=== PATIENT | female | born 1955 | race Caucasian/White ===

== ENCOUNTER → 2019-09-18 08:23 | Outpatient (BNVA) | payer MEDICARE, MEDICAID, SELFPAY | PROVIDERS: Family Provider Nurse Practitioner; PCP Nurse Practitioner; Visit Provider Nurse Practitioner | DX: R53.83 Other fatigue (principal); E78.2 Mixed hyperlipidemia; E55.9 Vitamin D deficiency, unspecified; Z79.01 Long term (current) use of anticoagulants; I10 Essential (primary) hypertension | CPT/HCPCS: 80053; 80061; 82306; 84439; 84443 ==

== ENCOUNTER 2020-02-08 10:04 | Outpatient (CLI) | payer MEDICARE, MEDICAID, SELFPAY ==
--- NOTE | 2020-02-08 10:15 | USCV_ITS ---
Dana Hitchcock Age: 65 Gender: F : 1955 Exam Date: 02/08/2020 10:27 Ordering Phys: Vaishali León MD ([email or web address]) Technologist: Lachelle Cedillo [place] [facility] [place]: Stenosis of carotid artery Risk Factors: Smoker Previous Vascular Surgery: None Right Brachial BP: / Left Brachial BP: / Right Left Velocity (cm/s) Spectral Plaque Velocity (cm/s) Spectral Plaque Syst/Diast Broadening Syst/Diast Broadening 74.00/ 14.40 Prox CCA 66.40 / 12.50 51.60/ 6.30 Mid CCA 62.50 / 11.80 49.30/ 12.00 Distal CCA 55.50 / 12.50 50.70/ 13.80 Prox ICA 49.50 / 13.90 66.40/ 16.90 Mid ICA 65.10 / 17.70 69.50/ 20.20 Distal ICA 69.70 / 18.60 73.60 ECA 71.50 1.35 ICA/CCA 1.12 Antegrade Vertebral Antegrade 38.40/ 9.00 cm/s 40.10/ 10.40 cm/s Tri Subclavian Tri 70.80 72.50 FINDINGS Mild to moderate scattered plaques at the bifurcations and proximal internal carotid arteries bilaterally. Intimal thickening in the common carotid arteries bilaterally. Antegrade flow in the vertebral arteries bilaterally. Normal Doppler flow velocities in the external carotid arteries bilaterally. CONCLUSIONS Mild to moderate scattered plaques at the bifurcations and proximal internal carotid arteries bilaterally suggestive of 16 to 49% gnosis. Intimal thickening in the common carotid arteries bilaterally. Dr Vaishali León MD [facility] (Electronically Signed) Final Date: 09 February 2020 08:46 S
== END 2020-02-08 10:05 | disposition home or self-care (01) ==
LOC: US 10:09
PROVIDERS: PCP Nurse Practitioner; Visit Provider Internal Medicine Cardiovascular Disease
DX: I65.23 Occlusion and stenosis of bilateral carotid arteries (principal)
CPT/HCPCS: 93880

== ENCOUNTER → 2020-11-28 17:12 | Outpatient (BNVA) | payer MEDICARE, MEDICAID, SELFPAY | PROVIDERS: PCP Nurse Practitioner; Visit Provider Family Medicine | DX: E78.2 Mixed hyperlipidemia (principal); I10 Essential (primary) hypertension; M19.90 Unspecified osteoarthritis, unspecified site; K21.9 Gastro-esophageal reflux disease without esophagitis; Z68.24 Body mass index [BMI] 24.0-24.9, adult; F17.210 Nicotine dependence, cigarettes, uncomplicated; Z71.89 Other specified counseling | CPT/HCPCS: 80053; 80061; 83721; 84443; 85025 ==

== ENCOUNTER 2020-12-16 11:57 | Outpatient (CLI) | payer MEDICARE, MEDICAID, SELFPAY ==
--- NOTE | 2020-12-16 12:00 | USCV_ITS ---
Dana Hitchcock Age: 65 Gender: F : 1955 Exam Date: 12/16/2020 12:11 Ordering Phys: Vaishali León MD ([email or web address]) Technologist: Aydee Philippe [place] [facility] [place]: RECHECK CCA STENOSIS Risk Factors: Unknown Previous Vascular Surgery: None Right Brachial BP: / Left Brachial BP: / Right Left Velocity (cm/s) Spectral Plaque Velocity (cm/s) Spectral Plaque Syst/Diast Broadening Syst/Diast Broadening 78.30/ 15.40 Prox CCA 65.70 / 16.40 48.00/ 16.40 Mid CCA 51.90 / 14.50 54.60/ 18.40 Distal CCA 55.90 / 15.80 61.80/ 20.40 Hetro Prox ICA 64.10 / 23.10 Hetro 70.30/ 25.60 Mid ICA 75.60 / 26.40 69.70/ 23.00 Distal ICA 74.90 / 29.10 60.50 ECA 96.00 Hetro 1.47 ICA/CCA 1.46 Antegrade Vertebral Antegrade 40.80/ 11.20 cm/s 27.20/ 8.00 cm/s Tri Subclavian Tri 36.80 57.70 FINDINGS Mild thickening in the common carotid arteries bilaterally. Minimal plaques of the bifurcations bilaterally. Normal Doppler flow velocities. Antegrade flow in the vertebral arteries bilaterally CONCLUSIONS Minimal plaques at the bifurcations bilaterally suggesting less than 50% stenosis. Normal Doppler flow velocities, suggesting no significant stenosis in the above-mentioned arteries. Dr Vaishali León MD [facility] (Electronically Signed) Final Date: 19 December 2020 09:13 S
== END 2020-12-16 11:58 | disposition home or self-care (01) ==
LOC: US 11:58
PROVIDERS: PCP Family Medicine; Visit Provider Internal Medicine Cardiovascular Disease
DX: I65.22 Occlusion and stenosis of left carotid artery (principal)
CPT/HCPCS: 93880

== ENCOUNTER → 2021-07-25 10:24 | Outpatient (BNVA) | payer MEDICARE, MEDICAID, SELFPAY | PROVIDERS: PCP Family Medicine; Visit Provider Internal Medicine Cardiovascular Disease | DX: I65.22 Occlusion and stenosis of left carotid artery (principal); I35.1 Nonrheumatic aortic (valve) insufficiency; I10 Essential (primary) hypertension | CPT/HCPCS: 99214 ==

== ENCOUNTER → 2021-08-17 09:17 | Outpatient (BNVA) | payer MEDICARE, MEDICAID, SELFPAY | PROVIDERS: PCP Family Medicine; Visit Provider Internal Medicine Cardiovascular Disease | DX: E78.2 Mixed hyperlipidemia (principal); I10 Essential (primary) hypertension; M79.89 Other specified soft tissue disorders; R53.83 Other fatigue | CPT/HCPCS: 80048; 83880 ==

== ENCOUNTER → 2021-10-09 11:31 | Outpatient (BNVA) | payer MEDICARE, MEDICAID, SELFPAY | PROVIDERS: PCP Family Medicine; Visit Provider Family Medicine | DX: E78.5 Hyperlipidemia, unspecified (principal); I10 Essential (primary) hypertension; E55.9 Vitamin D deficiency, unspecified | CPT/HCPCS: 80053; 80061; 82306; 84443; 85025 ==

== ENCOUNTER → 2022-01-31 09:40 | Outpatient (BNVA) | payer MEDICARE, MEDICAID, SELFPAY | PROVIDERS: PCP Family Medicine; Visit Provider Internal Medicine Cardiovascular Disease | DX: I35.1 Nonrheumatic aortic (valve) insufficiency (principal); I65.22 Occlusion and stenosis of left carotid artery; I49.3 Ventricular premature depolarization; E78.2 Mixed hyperlipidemia; I10 Essential (primary) hypertension; F17.200 Nicotine dependence, unspecified, uncomplicated | CPT/HCPCS: 99214 ==

== ENCOUNTER 2022-03-22 08:26 | Outpatient (CLI) | payer MEDICARE, MEDICAID, SELFPAY ==
--- NOTE | 2022-03-22 08:45 | USCV_ITS ---
Dana Hitchcock Age: 67 Gender: F : 1955 Exam Date: 03/22/2022 08:48 Ordering Phys: Vaishali León MD ([email or web address]) Technologist: [place] [facility] [facility] [place]ication: Murmur BP: 136 / 80 HR: 62 Rhythm: Sinus Technical Quality: Adequate MEASUREMENTS (Male / Female) Normal Values 2D ECHO LV Diastolic Diameter PLAX 4.3 cm 4.2 - 5.9 / 3.9 - 5.3 cm LV Systolic Diameter PLAX 2.6 cm IVS Diastolic Thickness 1.0 cm 0.6 - 1.0 / 0.6 - 0.9 cm IVS Systolic Thickness 1.5 cm LVPW Diastolic Thickness 1.0 cm 0.6 - 1.0 / 0.6 - 0.9 cm LVPW Systolic Thickness 1.2 cm LVOT Diameter 2.1 cm LV Ejection Fraction 2D Teich 71.1 % LV Ejection Fraction MOD 2C 66.3 % LV Ejection Fraction 2C AL 65.0 % LA Diameter 3.1 cm IVC Diameter 1.1 cm M-MODE Aortic Annulus Diameter 3.9 cm LA Ao Ratio MM 0.8 MV E Point Septal Separation 0.4 cm DOPPLER LVOT Peak Velocity 121.0 cm/s MV Area PHT 5.0 cm squared Mitral E to A Ratio 0.8 MV E' Velocity 53.0 cm/s Mitral E to MV E' Ratio 8.0 Mitral E to LV E' Lateral Ratio 8.0 Mitral E to LV E' Septal Ratio 8.1 TR Peak Velocity 305.0 cm/s TR Peak Gradient 37.2 mmHg TV Peak E Velocity 104.0 cm/s Right Atrial Pressure 3.0 mmHg Pulmonary Artery Systolic Pressu 40.2 mmHg PV Peak Velocity 111.0 cm/s RV Acceleration Time 0.2 s FINDINGS Left Ventricle Normal left ventricular size, systolic function and wall thickness, with no regional wall motion abnormalities. Left ventricular ejection fraction is estimated at 70-75 %. Normal diastolic function. Right Ventricle Normal right ventricular size and systolic function. Right ventricular systolic pressure 46 mmHg. Right Atrium Normal right atrial size. Left Atrium Normal left atrial size. Mitral Valve Mildly thickened mitral valve. No mitral valve stenosis. Trace mitral valve regurgitation. Aortic Valve Aortic valve not well visualized. No aortic valve stenosis. Mild to moderate aortic valve regurgitation. Tricuspid Valve Structurally normal tricuspid valve. No tricuspid valve stenosis. Mild tricuspid valve regurgitation. Pulmonic Valve Pulmonic valve not well visualized. Pericardium No pericardial effusion. Aorta Normal size aortic root and proximal ascending aorta. IVC Normal IVC dimension with >50% respiratory change of the inferior vena cava. CONCLUSIONS 1. Normal left ventricular size, systolic function and wall thickness, with no regional wall motion abnormalities. Left ventricular ejection fraction is estimated at 70-75 %. Normal diastolic function. 2. Normal right ventricular size and systolic function. 3. Mild pulmonary hypertension with pulm artery pressure estimated at 46 mmHg. 4. Mild tricuspid valve regurgitation. 5. Mild to moderate aortic valve regurgitation. 6. When compared to study dated 08/22/2018, there may not have been any significant change. Shivani Bellamy MD (Electronically Signed) Final Date: 26 March 2022 12:54 S
== END 2022-03-22 08:27 | disposition home or self-care (01) ==
LOC: RAD 08:27
PROVIDERS: PCP Family Medicine; Visit Provider Internal Medicine Cardiovascular Disease
DX: R06.09 Other forms of dyspnea; R01.1 Cardiac murmur, unspecified; I27.20 Pulmonary hypertension, unspecified; I08.2 Rheumatic disorders of both aortic and tricuspid valves
CPT/HCPCS: 93306

== ENCOUNTER → 2022-04-10 09:20 | Outpatient (BNVA) | payer MEDICARE, MEDICAID, SELFPAY | PROVIDERS: PCP Family Medicine; Visit Provider Nurse Practitioner | DX: E78.2 Mixed hyperlipidemia (principal); I10 Essential (primary) hypertension | CPT/HCPCS: 80053; 80061; 81000; 84443; 85025 ==

== ENCOUNTER 2022-05-07 12:20 | Outpatient (CLI) | payer MEDICARE, MEDICAID, SELFPAY ==
--- NOTE | 2022-05-07 13:00 | XR_ITS ---
WS: [email or web address] SCREENING DEXA SCAN [employer] CLINICAL INFORMATION: Z78.0 - Asymptomatic menopausal state COMPARISON: None. FINDINGS: The L1-L4 bone mineral density measures 0.946 g/cm2. This corresponds to a T score score of -1.9 and Z score of -0.3. Left femoral neck bone mineral density measures 0.748 g/cm2. This corresponds to a T score of -2.1 an d Z score of -0.6. Right femoral neck bone mineral density measures 0.725 g/cm2. This corresponds to a T score -2.2of an d Z score of -0.8. Mean femoral neck bone mineral density measures 0.737 g/cm2. This corresponds to a T score of -2.2 an d Z score of -0.7. XR/XR DEXA axial skeleton* [id number] IMPRESSION: Osteopenia lumbar spine. Osteopenia femoral necks. Patient's FRAX calculated 10 year probability for major osteoporotic fracture i s 14.1 % and osteoporotic hip fracture is 4.9%.
== END 2022-05-07 12:21 | disposition home or self-care (01) ==
PROVIDERS: PCP Family Medicine; Visit Provider Nurse Practitioner
DX: Z78.0 Asymptomatic menopausal state (principal); M85.88 Other specified disorders of bone density and structure, other site
CPT/HCPCS: 77080

== ENCOUNTER → 2022-10-03 09:59 | Outpatient (BNVA) | payer MEDICARE, MEDICAID, SELFPAY | PROVIDERS: PCP Nurse Practitioner; Visit Provider Nurse Practitioner | DX: I10 Essential (primary) hypertension (principal); E78.5 Hyperlipidemia, unspecified | CPT/HCPCS: 80053; 80061; 83721; 84443 ==

== ENCOUNTER → 2023-05-27 08:50 | Outpatient (BNVA) | payer MEDICARE, MEDICAID, SELFPAY | PROVIDERS: PCP Nurse Practitioner; Visit Provider Nurse Practitioner | DX: I10 Essential (primary) hypertension (principal); E78.2 Mixed hyperlipidemia | CPT/HCPCS: 80053; 80061; 84443 ==

== ENCOUNTER 2023-06-07 11:18 | Outpatient (CLI) | payer MEDICARE, MEDICAID, SELFPAY ==
--- NOTE | 2023-06-07 11:45 | USCV_ITS ---
Dana Hitchcock Age: 68 Gender: F : 1955 Exam Date: 06/07/2023 11:33 Ordering Phys: Paul Anthony Technologist: CT Exam Location[place] [facility] [place]: Risk Factors: Previous Vascular Surgery: Right Brachial BP: / Left Brachial BP: / Right Left Velocity (cm/s) Spectral Plaque Velocity (cm/s) Spectral Plaque Syst/Diast Broadening Syst/Diast Broadening 76.30/ 16.70 Prox CCA 80.20 / 21.90 77.60/ 18.00 Mid CCA 77.60 / 19.30 62.10/ 12.80 Distal CCA 72.40 / 16.70 72.40/ 20.60 Prox ICA 58.70 / 20.70 75.00/ 24.50 Mid ICA 61.60 / 20.40 90.60/ 28.40 Distal ICA 60.80 / 23.60 77.60 ECA 183.20 1.10 ICA/CCA 0.80 Antegrade Vertebral Antegrade 58.20/ 14.10 cm/s 53.90/ 14.20 cm/s Bi Subclavian Bi FINDINGS Comparison: 12/16/20 No change since the prior exam. No significant elevation of systolic or diastolic velocities. Waveforms are normal. Mild carotid atherosclerosis. Antegrade vertebral arteries. CONCLUSIONS No interval change in stenosis since prior exam. Bilateral ICA stenosis less than 50%. Mild carotid atherosclerosis. Dr. Kati Dickson DO (Electronically Signed) Final Date: 08 June 2023 08:31 S
== END 2023-06-07 11:19 | disposition home or self-care (01) ==
LOC: RAD 11:20
PROVIDERS: PCP Nurse Practitioner; Visit Provider Nurse Practitioner
DX: I65.23 Occlusion and stenosis of bilateral carotid arteries (principal)
CPT/HCPCS: 93880

== ENCOUNTER 2023-08-21 11:29 | Outpatient (CLI) | payer MEDICARE, MEDICAID, SELFPAY ==
--- NOTE | 2023-08-21 11:36 | XR_ITS ---
WS: [email or web address] XR thoracic spine 3V* [id number] REASON FOR EXAM: M54.9 - Dorsalgia, unspecified FINDINGS: No significant scoliosis. Mild dorsal kyphosis. No significant vertebral body abnormality. Mild narrowing of the intervertebral disc spaces with mild anterior osteophytosis in the mid and lowe r thoracic spine. XR/XR thoracic spine 3V* [id number] IMPRESSION: Mild degenerative spondylosis.
--- NOTE | 2023-08-21 11:36 | XR_ITS ---
WS: [email or web address] XR lumbar spine 2-3V* [id number] REASON FOR EXAM: M54.9 - Dorsalgia, unspecified FINDINGS: No significant scoliosis. Mildly exaggerated lumbar lordosis. 5 lumbar vertebrae. No focal vertebral body abnormality. Mild to moderate narrowing of the L5-S1 disc space. Remaining disc spaces are intact and relatively w ell preserved. No spondylolysis or significant spondylolisthesis. Mild degenerative arthropathy in the facet joints L4-S1. XR/XR lumbar spine 2-3V* [id number] IMPRESSION: Degenerative spondylosis of the lumbar spine as above.
--- NOTE | 2023-08-21 11:36 | XR_ITS ---
WS: [email or web address] XR cervical spine 3V* [id number] REASON FOR EXAM: M54.9 - Dorsalgia, unspecified FINDINGS: Relatively normal cervical lordosis. No focal vertebral body abnormality. Mild narrowing of the C5-C6 and C6-C7 disc spaces with anterior and uncinate osteophytosis. No significant listhesis. XR/XR cervical spine 3V* [id number] IMPRESSION: Degenerative spondylosis in the lower cervical spine as above.
== END 2023-08-21 11:30 | disposition home or self-care (01) ==
LOC: RAD 11:30
PROVIDERS: PCP Nurse Practitioner; Visit Provider Nurse Practitioner
DX: M48.04 Spinal stenosis, thoracic region (principal); M40.204 Unspecified kyphosis, thoracic region; M40.46 Postural lordosis, lumbar region; M47.897 Other spondylosis, lumbosacral region; M48.02 Spinal stenosis, cervical region
CPT/HCPCS: 72040; 72072; 72100

== ENCOUNTER → 2024-01-09 09:23 | Outpatient (BNVA) | payer MEDICARE, MEDICAID, SELFPAY | PROVIDERS: PCP Nurse Practitioner; Visit Provider Nurse Practitioner | DX: E55.9 Vitamin D deficiency, unspecified (principal); E78.2 Mixed hyperlipidemia | CPT/HCPCS: 80053; 80061; 82306; 82607 ==

== ENCOUNTER → 2024-08-05 08:45 | Outpatient (BNVA) | payer MEDICARE, MEDICAID, SELFPAY | PROVIDERS: PCP Nurse Practitioner; Visit Provider Nurse Practitioner | DX: I10 Essential (primary) hypertension (principal); E78.2 Mixed hyperlipidemia; E55.9 Vitamin D deficiency, unspecified | CPT/HCPCS: 80053; 80061; 81000; 82306; 83721 ==